=== PATIENT | female | born 1945 | race Caucasian/White ===

== ENCOUNTER 2017-06-30 01:05 | Inpatient (IN) | payer MEDICARE ==
[~2017-06-30] VITALS: Ht 162.6 cm; Wt 71.6 kg
[~2017-06-30 01:05] MED LIST: CARV12.52 PO; FENO145T32 PO; MAGN400T22 PO; METF500T4 PO; ROSU10TA PO; TRIA50CA PO; VENL150C PO; VENL37.52 PO; WARF5TAB7 PO
[2017-06-30] MEDS ORDERED: SODIUM CHLORIDE 0.9% IV SCH (01:43)
[2017-06-30] MEDS ORDERED: DILTIAZEM IV SCH (01:43)
[2017-06-30 02:00] LABS: HEMATOCRIT 35.2 % (34.6-47.8); HEMOGLOBIN 11.7 g/dL (11.7-16.4); WHITE BLOOD COUNT 6.1 x10^3/uL (3.4-10)
[2017-06-30] MEDS ORDERED: DILTIAZEM 125 MG in SODIUM CHLORIDE 0.9% 100 ML IV SCH (02:00)
[2017-06-30] MEDS ORDERED: DILTIAZEM 5 MG/ML, 5ML IV ONE (02:00)
[2017-06-30 02:10] LABS: BLOOD UREA NITROGEN 21 mg/dL (7-18)
[2017-06-30 02:22] LABS: IS PT STATUS REG ER OR PRE ER? YES
[2017-06-30] MEDS ORDERED: MAGNESIUM SULFATE PMX 2GM/50ML 50 ML IV ONE (02:30)
[2017-06-30] MEDS ORDERED: LOSA25TA5 PO (03:52)
[2017-06-30] MEDS ORDERED: POTA25TA4 PO (03:52)
[2017-06-30] MEDS ORDERED: hydrALAzine 20 MG/ML, 1ML IVPush PRN (04:00)
[2017-06-30] MEDS ORDERED: morphine SULFATE 10 MG/ML, 1ML IVPush PRN (04:00)
[2017-06-30] MEDS ORDERED: ONDANSETRON 2MG/ML, 2ML IVPush PRN (04:00)
[2017-06-30] MEDS ORDERED: ACETAMINOPHEN 325 MG TABLET PO PRN (04:00)
[2017-06-30 04:44] VITALS: BP 92/58
[2017-06-30] MEDS ORDERED: AMIODARONE 150 MG in DEXTROSE 5% 100 ML IV ONE (05:30)
[2017-06-30] MEDS ORDERED: FILTER 0.22 MICRON IV PRN (05:30)
[2017-06-30] MEDS: SODIUM CHLORIDE 0.9% 1,000 ML IV SCH ×2 (05:57→23:40)
[2017-06-30] MEDS ORDERED: POTASSIUM CHLORIDE 20 MEQ TAB.ER.PRT ONE (06:12)
[2017-06-30 06:15] VITALS: BP 93/59
[2017-06-30] MEDS: AMIODARONE 900 MG in DEXTROSE 5% 482 ML IV PRN (06:23)
[2017-06-30] MEDS ORDERED: POTASSIUM CHLORIDE 20 MEQ TAB.ER.PRT PO ONE (06:30)
[2017-06-30 07:09] VITALS: BP 95/61
[2017-06-30 07:50] LABS: IS PT STATUS REG ER OR PRE ER? NO
[2017-06-30] MEDS: metFORMIN 500 MG TABLET PO SCH ×2 (08:19→21:58)
[2017-06-30] MEDS: VENLAFAXINE XR 37.5MG CAP.ER.24H PO SCH (08:20)
[2017-06-30] MEDS ORDERED: FURO20TA3 PO (08:23)
[2017-06-30] MEDS ORDERED: K-LYTE 25 MEQ TABLET.EFF PO SCH (09:00)
[2017-06-30] MEDS: LOSARTAN 25MG TABLET PO SCH (09:15)
[2017-06-30] MEDS: CARVEDILOL 12.5 MG TABLET PO SCH ×2 (09:15→21:58)
[2017-06-30 11:30] LABS: IS PT STATUS REG ER OR PRE ER? NO
[2017-06-30 13:18] VITALS: BP 93/58
[2017-06-30] MEDS ORDERED: WARFARIN 5 MG TABLET PO-COUM SCH (18:00)
[2017-06-30] MEDS ORDERED: FUROSEMIDE 20 MG/2 ML ONE (18:21)
[2017-06-30] MEDS ORDERED: FUROSEMIDE 100 MG/10 ML IV ONE (18:30)
[2017-06-30 18:34] VITALS: BP 107/62
[2017-06-30 19:35] VITALS: BP 110/71
[2017-06-30] MEDS: ATORVASTATIN 20 MG TABLET PO SCH (21:00)
[2017-06-30] MEDS: MAGNESIUM OXIDE 400 MG TABLET PO SCH (21:57)
[2017-06-30] MEDS: VENLAFAXINE 75 MG CAP ER PO SCH (21:58)
[2017-06-30] MEDS: FENOFIBRATE 145 MG TABLET PO SCH (21:59)
[2017-06-30] MEDS ORDERED: DIPHENHYDRAMINE 50 MG CAPSULE ONE (22:19)
[2017-06-30] MEDS: POTASSIUM CHLORIDE 20 MEQ TAB.ER.PRT PO SCH (22:21)
[2017-06-30] MEDS: DIPHENHYDRAMINE 50 MG CAPSULE PO PRN (22:22)
[2017-07-01 02:00] VITALS: BP 109/72
[2017-07-01] MEDS: AMIODARONE 900 MG in DEXTROSE 5% 482 ML IV PRN (06:22)
[2017-07-01 07:54] VITALS: BP 104/68
[2017-07-01] MEDS: MAGNESIUM OXIDE 400 MG TABLET PO SCH (08:27)
[2017-07-01] MEDS: metFORMIN 500 MG TABLET PO SCH ×2 (08:27→21:04)
[2017-07-01] MEDS: VENLAFAXINE XR 37.5MG CAP.ER.24H PO SCH (08:27)
[2017-07-01] MEDS: AMIODARONE 200 MG TABLET PO SCH ×2 (08:27→21:06)
[2017-07-01] MEDS: FENOFIBRATE 145 MG TABLET PO SCH (08:27)
[2017-07-01] MEDS: POTASSIUM CHLORIDE 20 MEQ TAB.ER.PRT PO SCH ×2 (08:27→21:04)
[2017-07-01] MEDS: CARVEDILOL 12.5 MG TABLET PO SCH ×2 (08:27→21:05)
[2017-07-01] MEDS: LOSARTAN 25MG TABLET PO SCH (08:27)
[2017-07-01] MEDS ORDERED: FUROSEMIDE 40 MG/4 ML IV ONE (09:00)
[2017-07-01 10:12] LABS: BLOOD UREA NITROGEN 17 mg/dL (7-18)
[2017-07-01 13:58] VITALS: BP 99/64
[2017-07-01] MEDS ORDERED: WARFARIN 2 MG TABLET PO-COUM ONE (18:30)
[2017-07-01 18:39] VITALS: BP 97/62
[2017-07-01] MEDS: ATORVASTATIN 20 MG TABLET PO SCH (21:04)
[2017-07-01] MEDS: VENLAFAXINE 75 MG CAP ER PO SCH (21:10)
[2017-07-01] MEDS: DIPHENHYDRAMINE 50 MG CAPSULE PO PRN (21:10)
[2017-07-02 01:27] VITALS: BP 92/56
[2017-07-02 04:29] LABS: BLOOD UREA NITROGEN 21 mg/dL (7-18)
[2017-07-02 07:24] VITALS: BP 93/58
[2017-07-02] MEDS ORDERED: AMIO400T4 PO (07:52)
[2017-07-02] MEDS ORDERED: SPIR25TA3 PO (08:08)
[2017-07-02] MEDS ORDERED: CARV3.12 PO (08:08)
[2017-07-02] MEDS: AMIODARONE 200 MG TABLET PO SCH (08:20)
[2017-07-02] MEDS: metFORMIN 500 MG TABLET PO SCH (08:20)
[2017-07-02] MEDS: POTASSIUM CHLORIDE 20 MEQ TAB.ER.PRT PO SCH (08:20)
[2017-07-02] MEDS: FENOFIBRATE 145 MG TABLET PO SCH (08:20)
[2017-07-02] MEDS: MAGNESIUM OXIDE 400 MG TABLET PO SCH (08:21)
[2017-07-02] MEDS: LOSARTAN 25MG TABLET PO SCH (08:21)
[2017-07-02] MEDS: VENLAFAXINE XR 37.5MG CAP.ER.24H PO SCH (08:21)
[2017-07-02] MEDS ORDERED: FLU VACC QS2017-18 (36MOS+) UP/PF 0.5 ML IM-VACC ONE (08:30)
[2017-07-02] MEDS ORDERED: CARVEDILOL 3.125 MG TABLET PO SCH (08:30)
[2017-07-02 09:52] VITALS: BP 94/65
== END 2017-07-02 13:34 | disposition home or self-care (01) | DRG 308 ==
LOC: ED 03:07 → EDIP 03:17 → SUATTDRO 03:25 → 5SO 04:33
PROVIDERS: ADMIT Hospitalist; ATTEND Hospitalist
DX: I48.92 Unspecified atrial flutter (principal); I50.23 Acute on chronic systolic (congestive) heart failure; J81.1 Chronic pulmonary edema; D68.69 Other thrombophilia; I42.7 Cardiomyopathy due to drug and external agent; E83.42 Hypomagnesemia; E11.9 Type 2 diabetes mellitus without complications; E87.6 Hypokalemia; I48.91 Unspecified atrial fibrillation; T45.1X5A Adverse effect of antineoplastic and immunosuppressive drugs, initial encounter; Z79.01 Long term (current) use of anticoagulants; Z79.899 Other long term (current) drug therapy; Z85.3 Personal history of malignant neoplasm of breast; Z87.891 Personal history of nicotine dependence; Z92.3 Personal history of irradiation; Z95.810 Presence of automatic (implantable) cardiac defibrillator; Z23 Encounter for immunization; I11.0 Hypertensive heart disease with heart failure
CPT/HCPCS: 36415; 71010; 80048; 82040; 82962; 83735; 83880; 84443; 84484; 85025; 85610; 90686; 93005; 96365; 96367; C8929; J1940; J0282; J3475; J7030; J7060

== ENCOUNTER → 2017-08-08 | Outpatient (CLI) | payer MEDICARE ==
[~2017-08-08] MED LIST changes: +AMIO400T4 PO; +CARV3.12 PO; +FURO20TA3 PO; +LOSA25TA5 PO; +POTA25TA4 PO; +SPIR25TA3 PO
[2017-08-08 12:28] LABS: BASOPHILS # (AUTO) 0.04 x10^3/uL (0-0.1); BASOPHILS % (AUTO) 0 % (0-1); EOSINOPHILS # (AUTO) 0.21 x10^3/uL (0-0.4); EOSINOPHILS % (AUTO) 2 % (1-7); LYMPHOCYTES # (AUTO) 1.71 x10^3/uL (1-3.4); LYMPHOCYTES % (AUTO) 20 % (22-44); MD NO; MEAN CORPUSCULAR HEMOGLOBIN 28.4 pg (27.0-34.8); MEAN CORPUSCULAR HGB CONC 33.1 g/dL (32.4-35.8); MEAN CORPUSCULAR VOLUME 85.8 fL (80-100); MEAN PLATELET VOLUME 9.3 fL (7.4-10.4); MONOCYTES % (AUTO) 9 % (2-9); NEUTROPHILS # (AUTO) 5.97 x10^3/uL (1.8-6.8); NEUTROPHILS % (AUTO) 68 % (42-75); PLATELET COUNT 315 x10^3/uL (130-400); RED BLOOD COUNT 4.37 x10^6/uL (3.82-5.3); RED CELL DISTRIBUTION WIDTH 17.1 % (9.6-15.2)
[2017-08-08 12:41] LABS: ALBUMIN 4.1 g/dL (3.4-5.0); ANION GAP 10 mmol/L (5-15); CALCIUM 9.3 mg/dL (8.5-10.1); CHLORIDE 102 mmol/L (98-107)
[2017-08-08 12:47] LABS: ALANINE AMINOTRANSFERASE 21 U/L (12-78); ALKALINE PHOSPHATASE 64 U/L (45-117); BILIRUBIN,TOTAL 0.5 mg/dL (0.2-1.0); CHOL/HDL RATIO 3.6; CHOLESTEROL, TOTAL 157 mg/dL (140-239); CREATININE 1.03 mg/dL (0.55-1.02); HDL CHOL % 28 % (28-40); HDL CHOLESTEROL (DIRECT) 44 mg/dL (40-60); LDL CHOLESTEROL,CALCULATED 88 mg/dL (54-169); TOTAL PROTEIN 8.7 g/dL (6.4-8.2); TRIGLYCERIDES 125 mg/dL (50-200); VLDL CHOLESTEROL 25 mg/dL (0-25)
== END ==
LOC: LAB 09:27
PROVIDERS: ATTEND Internal Medicine Cardiovascular Disease
DX: I50.22 Chronic systolic (congestive) heart failure (principal); I50.33 Acute on chronic diastolic (congestive) heart failure; E78.00 Pure hypercholesterolemia, unspecified; I95.9 Hypotension, unspecified
CPT/HCPCS: 36415; 80053; 80061; 83880; 85025

== ENCOUNTER → 2017-08-30 | Outpatient (CLI) | payer MEDICARE ==
[~2017-08-30] MED LIST changes: -AMIO400T4 PO; +AMIO400T5 PO
== END ==
LOC: PETCFH 13:52
PROVIDERS: ATTEND Internal Medicine Cardiovascular Disease
DX: I42.8 Other cardiomyopathies (principal)
CPT/HCPCS: 78472; A9560

== ENCOUNTER → 2018-03-16 | Outpatient (CLI) | payer MEDICARE ==
[~2018-03-16] MED LIST changes: -METF500T4 PO; +METF500T5 PO; -SPIR25TA3 PO; +SPIR25TA5 PO; +WARF-36 PO; -WARF5TAB7 PO
== END | disposition home or self-care (01) ==
LOC: CFH 11:37
PROVIDERS: ATTEND Internal Medicine Critical Care Medicine
DX: R91.1 Solitary pulmonary nodule (principal); E11.9 Type 2 diabetes mellitus without complications
CPT/HCPCS: 71250

== ENCOUNTER → 2018-11-14 | Outpatient (CLI) | payer MEDICARE ==
[~2018-11-14] MED LIST changes: +LOSA25TA25 PO; -LOSA25TA5 PO; +METF500T17 PO; -METF500T5 PO; -ROSU10TA PO; +ROSU10TA2 PO
== END | disposition home or self-care (01) ==
LOC: PETCFH 10:08
PROVIDERS: ATTEND Nurse Practitioner Family
DX: I42.8 Other cardiomyopathies (principal)
CPT/HCPCS: 78472; A9560

== ENCOUNTER 2018-11-25 18:00 | Inpatient (IN) | payer MEDICARE ==
[~2018-11-25] VITALS: Ht 160 cm; Wt 52.9 kg
--- NOTE | 2018-11-25 18:10 | NUR ---
PT BIB [facility] WHILE WHE WAS THROWING A BASEBALL. PT LANDED ON HER L SIDE ON CONCRETE. ABRASION TO L KNEE AND L ELBOW AND C/O L HIP & L GROIN PAIN, ASAD WITH MOVEMENT. PT HAS HX OF AFIB, CHF, PACER, AND BREAST CA. ARRIVES TO ED A&OX4, PAIN 10/07. ERP IN ROOM IMMEDIATELY. POC RV'WD WITH PT.
--- NOTE | 2018-11-25 18:30 | NUR ---
PT TO XR VIA [facility].
[2018-11-25 18:35] LABS: BASOPHILS # (AUTO) 0.02 x10^3/uL (0-0.1); BASOPHILS % (AUTO) 0 % (0-1); EOSINOPHILS # (AUTO) 0.13 x10^3/uL (0-0.4); EOSINOPHILS % (AUTO) 2 % (1-7); LYMPHOCYTES # (AUTO) 1.33 x10^3/uL (1-3.4); LYMPHOCYTES % (AUTO) 22 % (22-44); MD NO; MEAN CORPUSCULAR HEMOGLOBIN 30.3 pg (27.0-34.8); MEAN CORPUSCULAR HGB CONC 33.9 g/dL (32.4-35.8); MEAN CORPUSCULAR VOLUME 89.4 fL (80-100); MEAN PLATELET VOLUME 8.5 fL (7.4-10.4); MONOCYTES # (AUTO) 0.59 x10^3/uL (0.2-0.8); MONOCYTES % (AUTO) 10 % (2-9); NEUTROPHILS # (AUTO) 3.91 x10^3/uL (1.8-6.8); NEUTROPHILS % (AUTO) 65 % (42-75); PLATELET COUNT 331 x10^3/uL (130-400); RED BLOOD COUNT 3.66 x10^6/uL (3.82-5.3); RED CELL DISTRIBUTION WIDTH 14.1 % (9.6-15.2)
[2018-11-25 18:45] LABS: INTERNATIONAL NORMALIZED RATIO 1.82 (0.93-1.1); PROTHROMBIN TIME 18.7 Seconds (9.6-11.5)
[2018-11-25 18:46] LABS: ALANINE AMINOTRANSFERASE 21 U/L (12-78); ALBUMIN 3.7 g/dL (3.4-5.0); ANION GAP 8 mmol/L (5-15); CHLORIDE 105 mmol/L (98-107); CREATININE 1.33 mg/dL (0.55-1.02)
[2018-11-25 18:49] LABS: ALKALINE PHOSPHATASE 73 U/L (45-117); BILIRUBIN,TOTAL 0.3 mg/dL (0.2-1.0); TOTAL PROTEIN 7.9 g/dL (6.4-8.2)
[2018-11-25] MEDS ORDERED: POTASSIUM PO (19:14)
[2018-11-25] MEDS ORDERED: SACU1TAB PO (19:14)
[2018-11-25] MEDS ORDERED: WARF5TAB PO (19:16)
[2018-11-25] MEDS ORDERED: WARF2.5T PO (19:16)
--- NOTE | 2018-11-25 19:20 | NUR ---
REPORTED TO KECIA SHAFER. Addendum: 11/25/18 at 1920 by HBELUISON PT UNDERSTANDS PLAN FOR ADMISSION AND SURGERY.
[2018-11-25] MEDS ORDERED: MORPHINE SULFATE 4 MG/ML, 1ML ONE (19:39)
--- NOTE | 2018-11-25 19:47 | NUR ---
PT MEDICATED PER [facility] WITH MORPHINE 4MG FOR PAIN TO LEFT HIP
[2018-11-25] MEDS ORDERED: MORPHINE SULFATE 4 MG/ML, 1ML IVPush PRN (20:00)
[2018-11-25] MEDS ORDERED: morphine SULFATE 10 MG/ML, 1ML IVPush PRN (21:00)
[2018-11-25] MEDS ORDERED: PHARMACY MAY ADJ FOR RENAL FX MC PRN (21:00)
[2018-11-25] MEDS ORDERED: LIDODERM 5% PATCH TD PRN (21:00)
[2018-11-25] MEDS ORDERED: BISACODYL 10 MG SUPP PR PRN (21:00)
[2018-11-25] MEDS ORDERED: DIPHENHYDRAMINE 25 MG CAPSULE PO PRN (21:00)
[2018-11-25] MEDS ORDERED: HYDROcodone/APAP 5/325 TABLET PO PRN (21:00)
[2018-11-25] MEDS ORDERED: ACETAMINOPHEN 325 MG TABLET PO PRN (21:00)
[2018-11-25] MEDS ORDERED: hydrALAzine 20 MG/ML, 1ML IVPush PRN (21:00)
[2018-11-25 21:45] VITALS: BP 93/58
[2018-11-25] MEDS: CARVEDILOL 3.125 MG TABLET PO SCH (21:58)
[2018-11-25 22:00] VITALS: BP 93/58
[2018-11-25] MEDS: ATORVASTATIN 20 MG TABLET PO SCH (22:21)
[2018-11-25] MEDS: VENLAFAXINE 75 MG CAP ER PO SCH (22:23)
[2018-11-25] MEDS: INSULIN LISPRO 100 UNITS/ML, PEN SQ-INSULIN SCH (22:23)
[2018-11-25] MEDS: SACUBITRIL/VALSARTAN 24MG-26MG TAB PO SCH (22:23)
[2018-11-26 03:52] VITALS: BP 102/62
[2018-11-26 05:53] LABS: BASOPHILS # (AUTO) 0.02 x10^3/uL (0-0.1); BASOPHILS % (AUTO) 0 % (0-1); EOSINOPHILS # (AUTO) 0.14 x10^3/uL (0-0.4); EOSINOPHILS % (AUTO) 2 % (1-7); LYMPHOCYTES # (AUTO) 1.39 x10^3/uL (1-3.4); LYMPHOCYTES % (AUTO) 21 % (22-44); MD NO; MEAN CORPUSCULAR HEMOGLOBIN 28.9 pg (27.0-34.8); MEAN CORPUSCULAR HGB CONC 32.2 g/dL (32.4-35.8); MEAN PLATELET VOLUME 8.6 fL (7.4-10.4); MONOCYTES # (AUTO) 0.71 x10^3/uL (0.2-0.8); MONOCYTES % (AUTO) 11 % (2-9); NEUTROPHILS # (AUTO) 4.49 x10^3/uL (1.8-6.8); NEUTROPHILS % (AUTO) 66 % (42-75); PLATELET COUNT 291 x10^3/uL (130-400); RED BLOOD COUNT 3.64 x10^6/uL (3.82-5.3); RED CELL DISTRIBUTION WIDTH 14.2 % (9.6-15.2)
[2018-11-26 06:00] LABS: INTERNATIONAL NORMALIZED RATIO 1.76 (0.93-1.1); PROTHROMBIN TIME 18.1 Seconds (9.6-11.5)
[2018-11-26 06:06] LABS: ANION GAP 8 mmol/L (5-15); CALCIUM 9.4 mg/dL (8.5-10.1); CHLORIDE 108 mmol/L (98-107)
[2018-11-26 06:07] LABS: CREATININE 1.12 mg/dL (0.55-1.02)
[2018-11-26] MEDS: INSULIN LISPRO 100 UNITS/ML, PEN SQ-INSULIN SCH ×4 (07:14→21:00)
[2018-11-26 08:53] VITALS: BP 99/62
[2018-11-26] MEDS: SACUBITRIL/VALSARTAN 24MG-26MG TAB PO SCH ×2 (08:55→21:00)
[2018-11-26] MEDS: SPIRONOLACTONE 25 MG TABLET PO SCH (08:55)
[2018-11-26] MEDS: VENLAFAXINE XR 37.5MG CAP.ER.24H PO SCH (08:55)
[2018-11-26] MEDS: MAGNESIUM OXIDE 400 MG TABLET PO SCH (08:55)
[2018-11-26] MEDS: FUROSEMIDE 20 MG TABLET PO SCH (08:55)
[2018-11-26] MEDS: FENOFIBRATE 145 MG TABLET PO SCH (08:55)
[2018-11-26] MEDS: CARVEDILOL 3.125 MG TABLET PO SCH ×2 (08:56→22:31)
[2018-11-26] MEDS: METHOCARBAMOL 500 MG TABLET PO PRN ×3 (13:46→22:32)
[2018-11-26 14:05] VITALS: BP 98/51
[2018-11-26 20:10] VITALS: BP 101/67
[2018-11-26] MEDS: ATORVASTATIN 20 MG TABLET PO SCH (22:32)
[2018-11-26] MEDS: VENLAFAXINE 75 MG CAP ER PO SCH (22:32)
[2018-11-27 01:14] VITALS: BP 99/64
[2018-11-27] MEDS: INSULIN LISPRO 100 UNITS/ML, PEN SQ-INSULIN SCH ×4 (07:00→21:00)
[2018-11-27 07:45] VITALS: BP 103/53
[2018-11-27] MEDS: FUROSEMIDE 20 MG TABLET PO SCH (08:45)
[2018-11-27] MEDS: VENLAFAXINE XR 37.5MG CAP.ER.24H PO SCH (08:45)
[2018-11-27] MEDS: FENOFIBRATE 145 MG TABLET PO SCH (08:45)
[2018-11-27] MEDS: SACUBITRIL/VALSARTAN 24MG-26MG TAB PO SCH ×2 (08:45→21:00)
[2018-11-27] MEDS: MAGNESIUM OXIDE 400 MG TABLET PO SCH (08:46)
[2018-11-27] MEDS: CARVEDILOL 3.125 MG TABLET PO SCH ×2 (08:46→21:00)
[2018-11-27] MEDS: SPIRONOLACTONE 25 MG TABLET PO SCH (08:46)
[2018-11-27] MEDS ORDERED: MIDAZOLAM 1 MG/ML, 2ML ONE (11:01)
[2018-11-27] MEDS ORDERED: FENTANYL PF 100 MCG/2ML ONE (11:01)
[2018-11-27] MEDS ORDERED: SUGAMMADEX 200 MG/2 ML IVPush ONE (11:26)
[2018-11-27] MEDS ORDERED: DEXAMETHASONE 4 MG/ML, 1ML ONE (11:26)
[2018-11-27] MEDS ORDERED: ONDANSETRON 2MG/ML, 2ML ONE (11:26)
[2018-11-27] MEDS ORDERED: CEFAZOLIN 1,000 MG ONE (11:26)
[2018-11-27] MEDS ORDERED: ROCURONIUM 10MG/ML,5ML ONE (11:26)
[2018-11-27] MEDS ORDERED: ETOMIDATE 40 MG/20 ML ONE (11:26)
[2018-11-27] MEDS ORDERED: DOPAMINE/D5W PMX 250 ML ONE (11:34)
[2018-11-27] MEDS ORDERED: ALBUTEROL SULFATE 2.5 MG/3 ML NPPB PRN (12:30)
[2018-11-27] MEDS ORDERED: HYDROmorphone 2 MG/ML, 1ML IVPush PRN (12:30)
[2018-11-27] MEDS ORDERED: PROMETHAZINE 25 MG/ML, 1ML IV PRN (12:30)
[2018-11-27] MEDS ORDERED: LABETALOL 5 MG/ML SYRINGE IV PRN (12:30)
[2018-11-27] MEDS ORDERED: FENTANYL PF 100 MCG/2ML IV PRN (12:30)
[2018-11-27] MEDS ORDERED: hydrALAzine 20 MG/ML, 1ML IV PRN (12:30)
[2018-11-27] MEDS ORDERED: KETOROLAC 30 MG/1 ML IV PRN (12:30)
[2018-11-27] MEDS ORDERED: MEPERIDINE/PF 25MG/0.5ML IVPush PRN (12:30)
[2018-11-27] MEDS ORDERED: ACETAMINOPHEN 325 MG TABLET PO PRN (12:30)
[2018-11-27] MEDS ORDERED: OXYcodone 5 MG/5 ML ORAL.SOL UDC PO PRN (12:30)
[2018-11-27] MEDS ORDERED: DIAZEPAM 5 MG/ML, 2ML IVPush PRN (12:30)
[2018-11-27 13:42] VITALS: BP 96/62
[2018-11-27] MEDS ORDERED: ONDANSETRON 2MG/ML, 2ML IV PRN (14:00)
[2018-11-27] MEDS ORDERED: HYDROcodone/APAP 10/325 MG TABLET PO PRN (14:00)
[2018-11-27] MEDS ORDERED: OXYcodone/APAP 5/325MG TABLET PO PRN (14:00)
[2018-11-27] MEDS ORDERED: morphine SULFATE 10 MG/ML, 1ML IV PRN (14:00)
[2018-11-27] MEDS: KETOROLAC 30 MG/1 ML IV SCH ×2 (14:12→21:48)
[2018-11-27 19:40] VITALS: BP 90/55
[2018-11-27] MEDS: CEFAZOLIN PMX 2GM/50ML 50 ML IVPB SCH (20:23)
[2018-11-27] MEDS: SODIUM CHLORIDE FLUSH 10ML SYR IVF SCH (21:00)
[2018-11-27] MEDS: ATORVASTATIN 20 MG TABLET PO SCH (21:48)
[2018-11-27] MEDS: VENLAFAXINE 75 MG CAP ER PO SCH (21:48)
[2018-11-28] VITALS (9 sets, daily range): BP systolic 70–109; BP diastolic 39–63
[2018-11-28] MEDS: CEFAZOLIN PMX 2GM/50ML 50 ML IVPB SCH (04:51)
[2018-11-28] MEDS: KETOROLAC 30 MG/1 ML IV SCH (06:00)
[2018-11-28] MEDS: INSULIN LISPRO 100 UNITS/ML, PEN SQ-INSULIN SCH ×4 (07:00→20:55)
[2018-11-28] MEDS: FENOFIBRATE 145 MG TABLET PO SCH (10:16)
[2018-11-28] MEDS: SENNA/DOCUSATE TABLET PO SCH (10:16)
[2018-11-28] MEDS: FUROSEMIDE 20 MG TABLET PO SCH (10:16)
[2018-11-28] MEDS: SACUBITRIL/VALSARTAN 24MG-26MG TAB PO SCH ×2 (10:16→20:06)
[2018-11-28] MEDS: MAGNESIUM OXIDE 400 MG TABLET PO SCH (10:16)
[2018-11-28] MEDS: VENLAFAXINE XR 37.5MG CAP.ER.24H PO SCH (10:17)
[2018-11-28] MEDS: CARVEDILOL 3.125 MG TABLET PO SCH ×2 (10:17→20:06)
[2018-11-28] MEDS: SPIRONOLACTONE 25 MG TABLET PO SCH (10:17)
[2018-11-28] MEDS: SODIUM CHLORIDE FLUSH 10ML SYR IVF SCH ×2 (10:17→20:54)
[2018-11-28 11:40] LABS: BASOPHILS # (AUTO) 0.02 x10^3/uL (0-0.1); BASOPHILS % (AUTO) 0 % (0-1); EOSINOPHILS # (AUTO) 0.14 x10^3/uL (0-0.4); EOSINOPHILS % (AUTO) 2 % (1-7); LYMPHOCYTES # (AUTO) 1.13 x10^3/uL (1-3.4); LYMPHOCYTES % (AUTO) 13 % (22-44); MD NO; MEAN CORPUSCULAR HEMOGLOBIN 30.5 pg (27.0-34.8); MEAN CORPUSCULAR HGB CONC 34.1 g/dL (32.4-35.8); MEAN CORPUSCULAR VOLUME 89.3 fL (80-100); MEAN PLATELET VOLUME 8.1 fL (7.4-10.4); MONOCYTES # (AUTO) 0.79 x10^3/uL (0.2-0.8); MONOCYTES % (AUTO) 9 % (2-9); NEUTROPHILS # (AUTO) 6.39 x10^3/uL (1.8-6.8); NEUTROPHILS % (AUTO) 75 % (42-75); PLATELET COUNT 270 x10^3/uL (130-400); RED BLOOD COUNT 3.42 x10^6/uL (3.82-5.3); RED CELL DISTRIBUTION WIDTH 14.2 % (9.6-15.2)
[2018-11-28 11:46] LABS: INTERNATIONAL NORMALIZED RATIO 1.5 (0.93-1.1); PROTHROMBIN TIME 15.5 Seconds (9.6-11.5)
[2018-11-28 11:48] LABS: ANION GAP 6 mmol/L (5-15); CALCIUM 9.4 mg/dL (8.5-10.1); CHLORIDE 105 mmol/L (98-107); CREATININE 1.21 mg/dL (0.55-1.02)
[2018-11-28] MEDS ORDERED: WARFARIN 5 MG TABLET PO-COUM ONE ×2 (13:00→18:30)
[2018-11-28] MEDS ORDERED: SODIUM CHLORIDE 0.9%, 250ML IVBOLUS ONE (14:00)
[2018-11-28] MEDS: ATORVASTATIN 20 MG TABLET PO SCH (20:54)
[2018-11-28] MEDS: VENLAFAXINE 75 MG CAP ER PO SCH (20:54)
[2018-11-29] VITALS (8 sets, daily range): BP systolic 86–111; BP diastolic 54–65
[2018-11-29 05:51] LABS: INTERNATIONAL NORMALIZED RATIO 1.52 (0.93-1.1); PROTHROMBIN TIME 15.7 Seconds (9.6-11.5)
[2018-11-29 05:57] LABS: ANION GAP 4 mmol/L (5-15); CALCIUM 8.6 mg/dL (8.5-10.1); CHLORIDE 106 mmol/L (98-107); CREATININE 0.79 mg/dL (0.55-1.02)
[2018-11-29] MEDS: INSULIN LISPRO 100 UNITS/ML, PEN SQ-INSULIN SCH ×4 (07:28→21:00)
[2018-11-29] MEDS: FENOFIBRATE 145 MG TABLET PO SCH (08:17)
[2018-11-29] MEDS: SODIUM CHLORIDE FLUSH 10ML SYR IVF SCH ×2 (08:17→23:05)
[2018-11-29] MEDS: VENLAFAXINE XR 37.5MG CAP.ER.24H PO SCH (08:17)
[2018-11-29] MEDS: FUROSEMIDE 20 MG TABLET PO SCH (08:17)
[2018-11-29] MEDS: MAGNESIUM OXIDE 400 MG TABLET PO SCH (08:18)
[2018-11-29] MEDS: SPIRONOLACTONE 25 MG TABLET PO SCH (08:18)
[2018-11-29] MEDS: CARVEDILOL 3.125 MG TABLET PO SCH ×2 (08:18→21:00)
[2018-11-29] MEDS: SENNA/DOCUSATE TABLET PO SCH (08:18)
[2018-11-29] MEDS: SACUBITRIL/VALSARTAN 24MG-26MG TAB PO SCH ×2 (08:18→21:00)
[2018-11-29 14:36] LABS: BASOPHILS # (AUTO) 0.03 x10^3/uL (0-0.1); BASOPHILS % (AUTO) 0 % (0-1); EOSINOPHILS # (AUTO) 0.13 x10^3/uL (0-0.4); EOSINOPHILS % (AUTO) 2 % (1-7); LYMPHOCYTES % (AUTO) 19 % (22-44); MD NO; MEAN CORPUSCULAR HEMOGLOBIN 29.4 pg (27.0-34.8); MEAN CORPUSCULAR HGB CONC 32.8 g/dL (32.4-35.8); MEAN CORPUSCULAR VOLUME 89.5 fL (80-100); MEAN PLATELET VOLUME 8.7 fL (7.4-10.4); MONOCYTES # (AUTO) 0.99 x10^3/uL (0.2-0.8); MONOCYTES % (AUTO) 11 % (2-9); NEUTROPHILS # (AUTO) 6.09 x10^3/uL (1.8-6.8); NEUTROPHILS % (AUTO) 68 % (42-75); PLATELET COUNT 302 x10^3/uL (130-400); RED BLOOD COUNT 3.34 x10^6/uL (3.82-5.3); RED CELL DISTRIBUTION WIDTH 14.1 % (9.6-15.2)
[2018-11-29 16:15] LABS: OCCULT BLOOD POSITIVE (NEGATIVE)
[2018-11-29] MEDS ORDERED: WARFARIN 5 MG TABLET PO-COUM SCH (18:00)
[2018-11-29] MEDS: VENLAFAXINE 75 MG CAP ER PO SCH (23:05)
[2018-11-29] MEDS: ATORVASTATIN 20 MG TABLET PO SCH (23:05)
[2018-11-30 01:45] VITALS: BP 111/65
[2018-11-30 05:28] LABS: INTERNATIONAL NORMALIZED RATIO 1.55 (0.93-1.1)
[2018-11-30] MEDS: INSULIN LISPRO 100 UNITS/ML, PEN SQ-INSULIN SCH ×2 (06:18→11:00)
[2018-11-30] MEDS ORDERED: OMEPRAZOLE 20 MG CAPSULE.DR PO SCH (07:30)
[2018-11-30 07:41] VITALS: BP 123/74
[2018-11-30] MEDS: SENNA/DOCUSATE TABLET PO SCH (09:00)
[2018-11-30] MEDS: SODIUM CHLORIDE FLUSH 10ML SYR IVF SCH (09:00)
[2018-11-30] MEDS: MAGNESIUM OXIDE 400 MG TABLET PO SCH (09:14)
[2018-11-30] MEDS: SACUBITRIL/VALSARTAN 24MG-26MG TAB PO SCH (09:14)
[2018-11-30] MEDS: VENLAFAXINE XR 37.5MG CAP.ER.24H PO SCH (09:15)
[2018-11-30] MEDS: FENOFIBRATE 145 MG TABLET PO SCH (09:16)
[2018-11-30] MEDS: CARVEDILOL 3.125 MG TABLET PO SCH (09:17)
[2018-11-30] MEDS ORDERED: OMEP-110 PO (12:28)
[2018-11-30] MEDS ORDERED: PANTOPRAZOLE 20MG TABLET PO SCH (16:00)
[2018-11-30] MEDS ORDERED: WARFARIN 7.5 MG TABLET PO-COUM SCH (18:00)
== END 2018-11-30 13:40 | disposition home health service (06) | DRG 480 ==
LOC: ED 18:59 → EDIP 20:36 → 4NOR 21:28 → DCLOUNGE 11-30 13:29
PROVIDERS: ADMIT Family Medicine; ATTEND Family Medicine
PROC: 03HY32Z Insertion of Monitoring Device into Upper Artery, Percutaneous Approach (ICD-10-PCS; 2018-11-27)
PROC: 0QH734Z Insertion of Internal Fixation Device into Left Upper Femur, Percutaneous Approach (ICD-10-PCS; principal; 2018-11-27 11:45)
DX: S72.002A Fracture of unspecified part of neck of left femur, initial encounter for closed fracture (principal); N17.0 Acute kidney failure with tubular necrosis; I48.92 Unspecified atrial flutter; K92.1 Melena; I42.7 Cardiomyopathy due to drug and external agent; I50.22 Chronic systolic (congestive) heart failure; D68.69 Other thrombophilia; W01.0XXA Fall on same level from slipping, tripping and stumbling without subsequent striking against object, initial encounter; Y93.01 Activity, walking, marching and hiking; E11.9 Type 2 diabetes mellitus without complications; E78.5 Hyperlipidemia, unspecified; I11.0 Hypertensive heart disease with heart failure; I25.5 Ischemic cardiomyopathy; I48.0 Paroxysmal atrial fibrillation; I95.81 Postprocedural hypotension; K59.00 Constipation, unspecified; T45.1X5A Adverse effect of antineoplastic and immunosuppressive drugs, initial encounter; Z79.01 Long term (current) use of anticoagulants; Y92.89 Other specified places as the place of occurrence of the external cause; Y99.8 Other external cause status; Z79.84 Long term (current) use of oral hypoglycemic drugs; Z80.0 Family history of malignant neoplasm of digestive organs; Z82.0 Family history of epilepsy and other diseases of the nervous system; Z85.3 Personal history of malignant neoplasm of breast; Z87.891 Personal history of nicotine dependence; Z92.3 Personal history of irradiation; Z95.810 Presence of automatic (implantable) cardiac defibrillator
CPT/HCPCS: 36415; 71045; 76000; 80048; 80053; 82272; 82962; 85014; 85018; 85025; 85610; 85730; 93005; 96374; C1713; C8929; G0378; J0690; J1100; J1265; J1885; J2250; J2405; J3010; Q9957; J1815; J7050

== ENCOUNTER → 2018-12-06 | Outpatient (CLI) | payer MEDICARE ==
[~2018-12-06] MED LIST changes: +OMEP-110 PO; +POTASSIUM PO; +SACU1TAB PO; +WARF2.5T PO; +WARF5TAB PO
== END | disposition home or self-care (01) ==
LOC: CFH 11:38
PROVIDERS: ATTEND Internal Medicine Cardiovascular Disease
DX: C50.919 Malignant neoplasm of unspecified site of unspecified female breast (principal); D23.9 Other benign neoplasm of skin, unspecified; E11.9 Type 2 diabetes mellitus without complications; E66.3 Overweight; E66.9 Obesity, unspecified; E78.00 Pure hypercholesterolemia, unspecified; E78.5 Hyperlipidemia, unspecified; F41.1 Generalized anxiety disorder; I42.8 Other cardiomyopathies; I42.9 Cardiomyopathy, unspecified
CPT/HCPCS: 36415; 83880

== ENCOUNTER 2018-12-25 14:50 | Outpatient (CLI) | payer MEDICARE ==
[~2018-12-25 14:50] MED LIST changes: +PANT40TA5 PO; +SUCR1ORA5 PO
[2018-12-25 15:59] LABS: CALCIUM 10.2 mg/dL (8.5-10.1); CHLORIDE 102 mmol/L (98-107)
[2018-12-25 16:02] LABS: ALANINE AMINOTRANSFERASE 18 U/L (12-78); ALKALINE PHOSPHATASE 82 U/L (45-117); ANION GAP 7 mmol/L (5-15); BILIRUBIN,TOTAL 0.3 mg/dL (0.2-1.0); CREATININE 1.29 mg/dL (0.55-1.02); TOTAL PROTEIN 8.3 g/dL (6.4-8.2)
== END 2018-12-25 23:59 | disposition home or self-care (01) ==
LOC: CFH 14:50
PROVIDERS: ATTEND Family Medicine
DX: I42.8 Other cardiomyopathies (principal); I50.84 End stage heart failure
CPT/HCPCS: 36415; 80053

== ENCOUNTER 2019-01-08 12:34 | Outpatient (CLI) | payer MEDICARE | END 2019-01-08 23:59 | disposition home or self-care (01) | LOC: CFH 12:34 | PROVIDERS: ATTEND Family Medicine | DX: M81.0 Age-related osteoporosis without current pathological fracture (principal); S72.002S Fracture of unspecified part of neck of left femur, sequela; X58.XXXS Exposure to other specified factors, sequela | CPT/HCPCS: 77080 ==

== ENCOUNTER 2020-10-17 17:13 | Emergency (ER) | payer MEDICARE ==
[~2020-10-17] VITALS: Ht 160 cm; Wt 60.0 kg
[~2020-10-17 17:13] MED LIST changes: -PANT40TA5 PO; +PANT40TA6 PO; -WARF2.5T PO; +WARF2.5T2 PO; -WARF5TAB PO; +WARF5TAB2 PO
--- NOTE | 2020-10-17 17:29 | NUR ---
75 yo f bib after getting dizzy and "almost fainting" while eating dinner. Patient has a cardic history with a pacer and an LVAD. captain waiter/waitress servando started piv and adminster 4 of zofran. Patient is seen by op [place], Dr. Zaldivar. Patient is on warfrin. Patient denies cp and SOB, EKG done at bedside. Patient attahed to all monitors. vss. NADN. will continute to monitor closely.
[2020-10-17 18:23] LABS: ANION GAP 9 mmol/L (5-15); BASOPHILS % (AUTO) 1 % (0-1); CALCIUM 9.5 mg/dL (8.5-10.1); CHLORIDE 104 mmol/L (98-107); CREATININE 0.97 mg/dL (0.55-1.02); EOSINOPHILS % (AUTO) 2 % (1-7); LYMPHOCYTES % (AUTO) 17 % (22-44); MEAN CORPUSCULAR HEMOGLOBIN 25.7 pg (27.0-34.8); MEAN CORPUSCULAR HGB CONC 32.5 g/dL (32.4-35.8); MEAN PLATELET VOLUME 8.3 fL (7.4-10.4); MONOCYTES % (AUTO) 8 % (2-9); NEUTROPHILS % (AUTO) 72 % (42-75); PLATELET COUNT 285 x10^3/uL (130-400); RED BLOOD COUNT 3.56 x10^6/uL (3.82-5.3); RED CELL DISTRIBUTION WIDTH 17.8 % (9.6-15.2)
[2020-10-17 18:29] LABS: MD NO
--- NOTE | 2020-10-17 18:38 | NUR ---
patient able to tolerate ambulation. vss. drun.
--- NOTE | 2020-10-17 18:43 | NUR ---
report given to
[2020-10-17 19:19] VITALS: BP 108/81
--- NOTE | 2020-10-17 19:21 | NUR ---
Pt states she feels fine and feels ok to go home. IV dc'd intact. Patient/Caregiver given discharge instructions and they have confirmed that they understand the instructions. Patient out of ED in WC with . Rx reviewed with patient.
== END 2020-10-17 19:23 | disposition home or self-care (01) ==
LOC: ED 19:01
DX: R42 Dizziness and giddiness (principal); I44.7 Left bundle-branch block, unspecified; I50.9 Heart failure, unspecified; Z85.3 Personal history of malignant neoplasm of breast
CPT/HCPCS: 36415; 80048; 85025; 93005; 99284

== ENCOUNTER → 2021-01-11 | Outpatient (CLI) | payer MEDICARE | END | disposition home or self-care (01) | LOC: CFH 10:33 | PROVIDERS: ATTEND Internal Medicine | DX: J92.9 Pleural plaque without asbestos (principal); M81.0 Age-related osteoporosis without current pathological fracture; J84.9 Interstitial pulmonary disease, unspecified; R06.02 Shortness of breath; N95.8 Other specified menopausal and perimenopausal disorders; M48.54XA Collapsed vertebra, not elsewhere classified, thoracic region, initial encounter for fracture | CPT/HCPCS: 71046; 71250; 77080 ==